=== PATIENT | female | born 1940 | race Caucasian/White ===

== ENCOUNTER 2020-09-07 13:11 | Inpatient (IN) | payer MEDICARE, MEDICAID, SELFPAY ==
[2020-09-07] VITALS (16 sets, daily range): BP systolic 107–166; BP diastolic 63–100; PULSE 57–124; RESP 14–29; TEMP 36.2–36.9; O2SAT 94–99; BMI 45.6
--- NOTE | 2020-09-07 13:39 | ECG_ITS ---
Test Reason : SOB Blood Pressure : / mmHG Vent. Rate : 126 BPM Atrial Rate : 136 BPM P-R Int : 000 ms QRS Dur : 150 ms QT Int : 354 ms P-R-T Axes : 000 -64 148 degrees QTc Int : 512 ms Wide QRS tachycardia with Premature ventricular complexes or Fusion complexes Left axis deviation Left bundle branch block Abnormal ECG When compared with ECG of 19-AUG-2019 19:07, Heart rate has increased Referred By: Jose Eduardo Bhagat Electronically Signed By:JESSE VIVAS MD
--- NOTE | 2020-09-07 13:40 | XR_ITS ---
EXAMINATION: XR CHEST CLINICAL INFORMATION: Chest pain COMPARISON: 04/26/2019 TECHNIQUE: Frontal view of the chest was obtained. FINDINGS: Lungs are well expanded and clear. No acute findings. No evidence of pulmonary consolidation, pleural effusion or pneumothorax. Cardiac silhouette is in the normal size range for an AP portable chest radiograph. 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 Multilevel osteophyte formation of the spine. IMPRESSION: No acute cardiopulmonary abnormality compared to the prior CXR from 04/26/2019.
--- NOTE | 2020-09-07 13:41 | ED.GENADULT ---
HPI - General Adult General Chief complaint: Dyspnea Stated complaint: DIFFICULTY BREATHING Time Seen by Provider: 09/07/20 13:32 History of Present Illness HPI narrative: this is a very pleasant 80 years old of female presented to the emergency department with the chief complaint no dyspnea, weakness, malaise. Denies any chest pain, fever, cough Onset (ago): day(s) (1) Radiation: non-radiation Severity: moderate Relieving factors: none Exacerbating factors: movement Related Data Allergies Allergy/AdvReac Type Severity Reaction Status Date / Time lisinopril [From Zestril] Allergy Intermediate RASH, Unverified 08/14/20 16:58 FACIAL SWELLING aspirin [Aspirin] Allergy Mild UPSET Unverified 08/14/20 16:58 STOMACH aspirin Allergy Unknown GI upset Uncoded 04/07/20 00:00 Review of Systems Review of Systems: Yes all other systems are reviewed and are negative Cardiovascular: Cardiovascular: Reports no additional cardiovascular complaints Gastrointestinal: Gastrointestinal: Reports no additional gastrointestinal complaints, Denies abdominal pain and Denies melena Psychiatric: Psychiatric: Reports no additional psychiatric complaints PMFSH Past Medical History Attestation statement: The following information was validated with the patient. Medical History Anal cancer Arthritis Atrial fibrillation Hypertension Social History Social History Alcohol intake: never Smoking Status: Never smoker Use of substances other than those prescribed or required for medical reasons: No Advance Directives: No Advance Directives Information Provided: No Physical Exam Vital Signs: Vital Signs: Vital Signs Temp Pulse Resp BP Pulse Ox 09/07/20 16:03 107 H 25 H 136/80 99 09/07/20 15:55 124 H 136/80 09/07/20 15:45 124 H 29 H 136/80 94 09/07/20 15:16 26 H 97 09/07/20 14:20 116 H 138/91 H 09/07/20 14:09 98.5 F 106 H 17 138/91 H 95 09/07/20 13:41 98.3 F 117 H 15 143/89 H 95 Body Mass Index 45.6 Const: General: cooperative Orientation/consciousness: oriented to person, oriented to place, oriented to time and patient oriented x3 HENMT: Head: Yes normal to inspection and Yes No palpable skull fracture present General nose exam: Normal external nose present Face and sinus: Yes normal facial exam Mouth: Normal oral and palatal mucosa present Eyes: General: appearance normal, both eyes and all related structures Visual Villalba: normal visual villalba by confrontation Alignment and Position: alignment normal Neck: Neck: Yes normal visual inspection, Yes full ROM and Yes no lymphadenopathy Chest: Chest palpation & inspection: normal inspection of the chest and normal palpation of entire chest wall Resp: Effort & Inspection: normal respiratory effort Cardio: Jugular venous distension: no JVD Palpation: normal PMI Rate: regular rate Rhythm: regular rhythm Skin: General skin exam: no rashes or lesions noted Neuro: General: oriented to person, oriented to place, oriented to time and patient oriented x3 Medical Decision Making Lab Data Lab results reviewed: Yes I reviewed the patient's lab results. Result diagrams: 09/07/20 13:56 09/07/20 13:56 Labs: Lab Results 09/07/20 09/07/20 09/07/20 Range/Units 13:56 13:56 13:56 WBC 6.2 (4.8-10.8) X10*3/uL RBC 4.67 (4.20-5.50) X10*6/uL Hgb 13.8 (12.0-16.0) g/dl Hct 44.5 (37-47) % MCV 95.3 (80-98) fL MCH 29.6 (27.0-33.0) pg MCHC 31.0 (31.0-35.0) g/dl RDW 13.9 (11.0-16.0) % Plt Count 180 (160-400) X10*3/uL MPV 11.5 (9.4-12.3) fL Immature Gran % (Auto) 0.3 (0.0-0.4) % Neut % (Auto) 70.0 (45-73) % Lymph % (Auto) 18.7 L (20-40) % [place] % (Auto) 9.3 (2-11) % Eos % (Auto) 1.0 (0-4) % Baso % (Auto) 0.7 (0-2) % Lymph # (Auto) 1.2 (1.2-4.9) X10*3/uL [place] # (Auto) 0.6 (0.1-1.2) X10*3/uL Eos # (Auto) 0.1 (0.0-0.4) X10*3/uL Baso # (Auto) 0.0 (0.0-0.2) X10*3/uL Abs Immat Gran (auto) 0.02 (0.00-0.03) X10*3/uL Absolute Neuts (auto) 4.3 (2.0-8.3) X10*3/uL Absolute Nucleated RBC 0.000 (0.0-0.012) X10*3/uL Nucleated RBC % (auto) 0.0 (0.0-0.2) /100WBC PT 16.1 H (10.8-13.0) SEC INR 1.4 H (0.9-1.1) APTT 38.0 (24.1-38.0) SEC Sodium 142 (135-145) mmol/L Potassium 4.3 (3.3-5.1) mmol/l Chloride 107 (96-108) mmol/L Carbon Dioxide 26 (22-29) mmol/L Anion Gap 13 (12-20) BUN 23 H (9-16) mg/dL Creatinine 0.80 (0.5-1.4) mg/dL Estim Creat Clear Calc 69.3 Estimated GFR > 60 Random Glucose 109 (60-115) mg/dL Calcium 8.5 (8.4-10.2) mg/dL Total Bilirubin 0.8 (0.0-1.0) mg/dL AST 61 H (5-31) U/L ALT 61 H (0-31) U/L Alkaline Phosphatase 70 (39-117) U/L Troponin I High Sens (<3.5-17.0) ng/L Total Protein 6.4 L (6.5-8.0) g/dL Albumin 3.8 (3.5-5.0) g/dL 09/07/20 Range/Units 13:56 WBC (4.8-10.8) X10*3/uL RBC (4.20-5.50) X10*6/uL Hgb (12.0-16.0) g/dl Hct (37-47) % MCV (80-98) fL MCH (27.0-33.0) pg MCHC (31.0-35.0) g/dl RDW (11.0-16.0) % Plt Count (160-400) X10*3/uL MPV (9.4-12.3) fL Immature Gran % (Auto) (0.0-0.4) % Neut % (Auto) (45-73) % Lymph % (Auto) (20-40) % [place] % (Auto) (2-11) % Eos % (Auto) (0-4) % Baso % (Auto) (0-2) % Lymph # (Auto) (1.2-4.9) X10*3/uL [place] # (Auto) (0.1-1.2) X10*3/uL Eos # (Auto) (0.0-0.4) X10*3/uL Baso # (Auto) (0.0-0.2) X10*3/uL Abs Immat Gran (auto) (0.00-0.03) X10*3/uL Absolute Neuts (auto) (2.0-8.3) X10*3/uL Absolute Nucleated RBC (0.0-0.012) X10*3/uL Nucleated RBC % (auto) (0.0-0.2) /100WBC PT (10.8-13.0) SEC INR (0.9-1.1) APTT (24.1-38.0) SEC Sodium (135-145) mmol/L Potassium (3.3-5.1) mmol/l Chloride (96-108) mmol/L Carbon Dioxide (22-29) mmol/L Anion Gap (12-20) BUN (9-16) mg/dL Creatinine (0.5-1.4) mg/dL Estim Creat Clear Calc Estimated GFR Random Glucose (60-115) mg/dL Calcium (8.4-10.2) mg/dL Total Bilirubin (0.0-1.0) mg/dL AST (5-31) U/L ALT (0-31) U/L Alkaline Phosphatase (39-117) U/L Troponin I High Sens 19.3 H (<3.5-17.0) ng/L Total Protein (6.5-8.0) g/dL Albumin (3.5-5.0) g/dL Imaging Data Chest x-ray: Attestation: I personally reviewed and interpreted this imaging study as follows: Radiologist's impression: NAD ECG Data Attestation: I personally reviewed and interpreted this ECG as follows: Prior ECG tracings: available for review Pacemaker model: atrial fibrillation with a rate of 126 old left bundle-branch block Critical Care Time Critical Care Time Total Critical Care Time: 30 Attestation: iv cardizem and titration Discharge Plan Discharge Clinical Impression: Atrial fibrillation with controlled ventricular rate Patient Disposition: Admitted As Inpatient
[2020-09-07 14:08] LABS: MANUAL DIFF FLAG NO
[2020-09-07 14:11] LABS: Basophils Percent Auto 0.7 % (0-2); Eosinophils Absolute Auto 0.1 X10*3/uL (0.0-0.4); Hematocrit 44.5 % (37-47); Hemoglobin 13.8 g/dl (12.0-16.0); Imm Gran Abs Auto 0.02 X10*3/uL (0.00-0.03); Imm Gran Pct Auto 0.3 % (0.0-0.4); Lymphocytes Absolute Auto 1.2 X10*3/uL (1.2-4.9); Lymphocytes Percent Auto 18.7 % (20-40); Mean Corpuscular Hemoglobin 29.6 pg (27.0-33.0); Mean Corpuscular Volume 95.3 fL (80-98); Mean Platelet Volume 11.5 fL (9.4-12.3); Monocytes Absolute Auto 0.6 X10*3/uL (0.1-1.2); Monocytes Percent Auto 9.3 % (2-11); Neutrophils Absolute Auto 4.3 X10*3/uL (2.0-8.3); Platelet Count 180 X10*3/uL (160-400); Red Blood Count 4.67 X10*6/uL (4.20-5.50); Red Cell Distribution Width 13.9 % (11.0-16.0); White Blood Count 6.2 X10*3/uL (4.8-10.8)
[2020-09-07] MEDS: dilTIAZem HCL 50 MG/10 ML VIAL 15 MG IVPUSH (14:20)
[2020-09-07 14:29] LABS: INTERNATIONAL NORM RATIO 1.4 (0.9-1.1); Prothrombin Time 16.1 SEC (10.8-13.0)
[2020-09-07 14:40] LABS: Alanine Aminotransferase 61 U/L (0-31); Albumin Level 3.8 g/dL (3.5-5.0); Alkaline Phosphatase 70 U/L (39-117); Anion Gap 13 (12-20); Aspartate Amino Transferase 61 U/L (5-31); Bilirubin Total 0.8 mg/dL (0.0-1.0); Blood Urea Nitrogen 23 mg/dL (9-16); Calcium 8.5 mg/dL (8.4-10.2); Carbon Dioxide 26 mmol/L (22-29); Chloride 107 mmol/L (96-108); Creatinine Clr Calc Pharmacy 69.3; Estimated Glomerular Filt Rate > 60; Glucose Random 109 mg/dL (60-115); Potassium 4.3 mmol/l (3.3-5.1); Sodium 142 mmol/L (135-145); Total Protein 6.4 g/dL (6.5-8.0)
[2020-09-07 15:17] LABS: Troponin-I High Sensitivity 19.3 ng/L (<3.5-17.0)
[2020-09-07] MEDS: dilTIAZem HCL 125 MG in 0.9 % Sodium Chloride 100 ML IVCONT (15:55)
--- NOTE | 2020-09-07 16:03 | PC.NURSE ---
CARDIZEM DRIP STARTED, PT ALSO ASSISTED TO BEDPAN. PLACED ON 2L O2 VIA NC.
--- NOTE | 2020-09-07 16:27 | PM.IMHP ---
History of Present Illness Date of Service: 09/07/20 <Payton Martinez NP - Last Filed: 09/07/20 16:43> Chief Complaint: Tiredness <Payton Martinez NP - Last Filed: 09/07/20 16:43> 80-year-old woman presented to the ER with complaints of 2-3 days of feeling more tired and short breath. She has a history of atrial fibrillation. She denied chest pain, nausea, vomiting, diarrhea. 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 Her heart rate was noted to be as high as 124. She was started on a Cardizem drip. She was noted to have an elevated blood pressure of 150 1.92. She reported that she has had elevated blood pressures and has been under more stress recently as she has had some family complications with her granddaughters that do not visit her any longer. her initial troponin was noted to be elevated at 19.3 point she has no complaints of chest pain. Patient will be admitted for further management treatment of atrial fibrillation with rapid ventricular response. <Payton Martinez NP - Last Filed: 09/07/20 16:43> Review of Systems Review of Systems: Denies any recent fever chills or decrease in appetite respiratory See HPI cardiovascular see HPI gastrointestinal denies any dysphagia abdominal pain nausea vomiting or diarrhea genitourinary denies any dysuria frequency or hematuria musculoskeletal denies any joint pain or swelling neuropsych denies any weakness or seizures all other systems reviewed are negative <Payton Martinez NP - Last Filed: 09/07/20 16:43> [facility] Medical History: Medical History (Updated 09/08/20 @ 15:03 by Franklin Beltran MD) Anal cancer Arthritis Atrial fibrillation Atrial fibrillation with controlled ventricular rate Chronic diastolic heart failure Esophagitis Essential hypertension Fibromyalgia Left bundle branch block (LBBB) Obstructive sleep apnea <PRAVEENA Irizarry Last Filed: 09/07/20 16:43> Pertinent family history: no cardiac disease <Payton Martinez NP - Last Filed: 09/07/20 16:43> Surgical History: Surgical History H/O foot surgery History of bladder surgery History of total knee arthroplasty Status post ORIF of fracture of ankle <Payton Martinez NP - Last Filed: 09/07/20 16:43> Social History: Social History Household Members: Family Housing: Apartment Alcohol intake: never Smoking Status: Never smoker service: No Current occupational status: retired <Payton Martinez NP - Last Filed: 09/07/20 16:43> Meds Allergies/Adverse reactions: Allergies Allergy/AdvReac Type Severity Reaction Status Date / Time lisinopril [From Zestril] Allergy Intermediate RASH, Verified 09/07/20 17:00 FACIAL SWELLING aspirin [Aspirin] Allergy Mild UPSET Verified 09/07/20 17:00 STOMACH aspirin Allergy Unknown GI upset Uncoded 04/07/20 00:00 <Payton Martinez NP - Last Filed: 09/07/20 16:43> Home medications: Home Medications Medication Instructions Recorded Confirmed Type Eliquis 5 mg PO BID 09/07/20 09/07/20 History docusate sodium [Colace] 100 mg PO BID 09/07/20 09/07/20 History multivitamin 1 tab PO DAILY 09/07/20 09/07/20 History nitrofurantoin 100 mg PO Q12H 09/07/20 09/07/20 History omeprazole 20 mg PO BID 09/07/20 09/07/20 History torsemide 5 mg PO DAILY 09/07/20 09/07/20 History tramadol 50 mg PO BID 09/07/20 09/07/20 History valsartan 320 mg PO DAILY 09/07/20 09/07/20 History verapamil 60 mg PO BID 09/07/20 09/07/20 History <Payton Martinez NP - Last Filed: 09/07/20 16:43> Physical Exam Vital Signs and Narrative: Vital Signs: Last Vital Signs Temp 98.5 F 09/07/20 14:09 Pulse 120 H 09/07/20 16:25 Resp 15 09/07/20 16:25 BP 151/92 H 09/07/20 16:25 Pulse Ox 99 09/07/20 16:25 Body Mass Index 45.6 <Payton Martinez NP - Last Filed: 09/07/20 16:43> Appearing in no acute distress head is normocephalic atraumatic eyes pupils are PERRLA sclera is anicteric mouth throat mucous membranes are intact and moist neck is supple no lymphadenopathy, no JVD noted lung sounds are diminished heart regular irregular positive bowel sounds, abdomen is soft, nontender neuro patient is alert x3, no focal deficits <Payton Martinez NP - Last Filed: 09/07/20 16:43> Results Labs Labs: Laboratory Tests 09/07/20 09/07/20 09/07/20 13:56 13:56 13:56 WBC 6.2 RBC 4.67 Hgb 13.8 Hct 44.5 MCV 95.3 MCH 29.6 MCHC 31.0 RDW 13.9 Plt Count 180 MPV 11.5 Immature Gran % (Auto) 0.3 Neut % (Auto) 70.0 Lymph % (Auto) 18.7 L [place] % (Auto) 9.3 Eos % (Auto) 1.0 Baso % (Auto) 0.7 Lymph # (Auto) 1.2 [place] # (Auto) 0.6 Eos # (Auto) 0.1 Baso # (Auto) 0.0 Abs Immat Gran (auto) 0.02 Absolute Neuts (auto) 4.3 Absolute Nucleated RBC 0.000 Nucleated RBC % (auto) 0.0 PT 16.1 H INR 1.4 H APTT 38.0 Sodium 142 Potassium 4.3 Chloride 107 Carbon Dioxide 26 Anion Gap 13 BUN 23 H Creatinine 0.80 Estim Creat Clear Calc 69.3 Estimated GFR > 60 Random Glucose 109 Calcium 8.5 Total Bilirubin 0.8 AST 61 H ALT 61 H Alkaline Phosphatase 70 Troponin I High Sens Total Protein 6.4 L Albumin 3.8 09/07/20 13:56 WBC RBC Hgb Hct MCV MCH MCHC RDW Plt Count MPV Immature Gran % (Auto) Neut % (Auto) Lymph % (Auto) [place] % (Auto) Eos % (Auto) Baso % (Auto) Lymph # (Auto) [place] # (Auto) Eos # (Auto) Baso # (Auto) Abs Immat Gran (auto) Absolute Neuts (auto) Absolute Nucleated RBC Nucleated RBC % (auto) PT INR APTT Sodium Potassium Chloride Carbon Dioxide Anion Gap BUN Creatinine Estim Creat Clear Calc Estimated GFR Random Glucose Calcium Total Bilirubin AST ALT Alkaline Phosphatase Troponin I High Sens 19.3 H Total Protein Albumin <Payton Martinez NP - Last Filed: 09/07/20 16:43> Assessment and Plan (1) Atrial fibrillation with rapid ventricular response: Status: Inactive <Payton Martinez NP - Last Filed: 09/07/20 16:43> (2) Elevated troponin: Status: Acute <Payton Martinez NP - Last Filed: 09/07/20 16:43> (3) Chronic diastolic heart failure: Status: Inactive <Payton Martinez NP - Last Filed: 09/07/20 16:43> (4) Hypertension: Status: Deleted <Payton Martinez NP - Last Filed: 09/07/20 16:43> 80-year-old woman admitted with atrial fibrillation with rapid ventricular response with history of atrial fibrillation. Atrial fibrillation with rapid ventricular response. Continue IV Cardizem, monitor on telemetry, cardiology to follow, continue anticoagulation. Elevated troponin. No complaints of chest pain. Chronic left bundle branch block. Will trend troponin. Hypertension. Continue home medications. DVT prophylaxis with Eliquis. Case discussed with Dr. Beltran Full code <Payton Martinez NP - Last Filed: 09/07/20 16:43>
--- NOTE | 2020-09-07 16:47 | PC.NURSE ---
JC UPDATED REQUESTED [phone]. MED REC BEING COMPLETED
--- NOTE | 2020-09-07 17:22 | PC.NURSE ---
pt tolerated titration well. med rec complete,. awaiting room #
--- NOTE | 2020-09-07 17:36 | PC.NURSE ---
CALLED UP TO C TO GIVE REPORT
--- NOTE | 2020-09-07 17:39 | PM.EVENT ---
Event Note Event Note: Admission note Date of service 09/07/2020 the patient was seen and evaluated with Payton Martinez NP. I agree with her note, assessment and plan with the following. In summary, an 80 years old lady with past medical history of atrial fibrillation, diastolic CHF, CARON,anal cancer among others who presented to the hospital with reported increased lethargy and shortness of breath for the last 2-3 days. She denies fever, chills, chest pain. She denies feeling any palpitation. In the emergency she was found to heart rate in 120s AFib with RVR. Started on Cardizem drip and admitted for further evaluation and treatment. Atrial fibrillation with RVR Started on Cardizem drip, to continue Continue oral anticoagulation Monitor on telemetry To get cardiology evaluation the morning Rest of evaluations by EXPERIMENTAL ROCKET SLED MECHANIC note.
[2020-09-07 17:44] LABS: Magnesium 1.7 mg/dL (1.6-2.6)
[2020-09-07 18:05] LABS: Thyroid Stimulating Hormone 1.58 mIU/mL (0.32-4.0)
[2020-09-07 19:18] LABS: B Type Natriuretic Peptide 227 pg/mL (<100); Troponin-I High Sensitivity 24.1 ng/L (<3.5-17.0)
[2020-09-07] MEDS: Docusate Sodium 100 MG CAPSULE PO (19:55)
[2020-09-07] MEDS: Apixaban 5 MG TABLET PO (19:55)
[2020-09-07] MEDS: traMADoL HCL 50 MG TABLET PO (19:55)
[2020-09-07] MEDS: VerapamiL HCL 40 MG TABLET 60 MG PO (20:31)
[2020-09-08] VITALS (16 sets, daily range): BP systolic 107–145; BP diastolic 59–110; PULSE 72–98; RESP 16–22; TEMP 35.5–36.9; O2SAT 96–100; BMI 45.6
--- NOTE | 2020-09-08 00:03 | PC.NURSE ---
hr 57 aflutter,cardizem drip stopped,Dr Aguilar notified
[2020-09-08] MEDS: traZODone HCL 25 MG HALFTAB PO (00:08)
--- NOTE | 2020-09-08 05:10 | PC.NURSE ---
CARE ASSUMED 23:15...REMAINS OFF CARDIZEM DRIP...ATRIAL FLUTTER HR 70'S SINCE RECEIPT HS VERAPAMIL...VSS...NO DISTRESS...C/O INABILITY TO SLEEP AT HS..HOSPITALIST UPDATED...PRN TRAZADONE GIVEN WITH GOOD EFFECT...RESTFUL OVERNIGHT
[2020-09-08] MEDS: Omeprazole 20 MG CAPSULE.DR PO ×2 (05:32→16:32)
[2020-09-08] MEDS: Apixaban 5 MG TABLET PO ×2 (08:46→21:33)
[2020-09-08] MEDS: traMADoL HCL 50 MG TABLET PO ×2 (08:46→21:32)
[2020-09-08] MEDS: Docusate Sodium 100 MG CAPSULE PO ×2 (08:47→21:32)
[2020-09-08] MEDS: VerapamiL HCL 40 MG TABLET 60 MG PO ×2 (08:47→21:33)
[2020-09-08] MEDS: Multivitamin TABLET 1 TAB PO (08:47)
[2020-09-08] MEDS: Furosemide 20 MG/2 ML VIAL IVPUSH (11:28)
--- NOTE | 2020-09-08 11:44 | MHC.CM.PN ---
POWER PLANT TECHNICIAN completed with pt and her friend who was at bedside. Pt declined translator/interpreter services. Pt reports she lives at home with her two adult sons and her S/O whom she has been with for 35 years. Pt reports she has a SAMPLE CHECKER for a total of 50 hours every two weeks and no other home care services. Pt reports her sons typically drive her to appointments and assist her with errands. Pt confirms the PCP and HCP on file are accurate. IMM delivered verbally and pt indicates understanding Current DC plan is home with resumption of SAMPLE CHECKER services pt will self arrange transportation
--- NOTE | 2020-09-08 11:55 | PM.CNCAR ---
History of Present Illness History of Present Illness Date of Consult: September 08, 2020 Chief complaint: weakness, rapid afib Narrative: This is a cardiology consultation regarding atrial fibrillation with rapid rate. Patient sees Dr. Escobar as an outpatient. She has a history of chronic atrial fibrillation. Not very clear if she has paroxysmal persistent but EKGs from last year have shown sinus rhythm. Current admission is for complaints of feeling tired and short of breath. She was found to have atrial fibrillation rapid rate. She has been put on a Cardizem drip. At home it seems that she takes verapamil and Eliquis. Otherwise no clear anginal-type chest pains. She does not feel any palpitations at this time. No documented history of any coronary disease, myocardial infarction or PCI in the past. Review of Systems Review of Systems: Cardiac-positive for shortness of breath and fatigue; No palpitations, angina or syncopal episodes. Remainder of the 10 system review is negative. [facility] Past Medical History Medical History Anal cancer Arthritis Atrial fibrillation Atrial fibrillation with controlled ventricular rate Chronic diastolic heart failure Esophagitis Fibromyalgia Hypertension Left bundle branch block (LBBB) Obstructive sleep apnea Family History Pertinent family history: Negative for any myocardial infarction. Family history: reviewed and not pertinent Surgical History Surgical History H/O foot surgery History of bladder surgery History of total knee arthroplasty Status post ORIF of fracture of ankle Social History Social History Household Members: Family Housing: Apartment Alcohol intake: never Smoking Status: Never smoker Use of substances other than those prescribed or required for medical reasons: No Currently Displaying Signs/Symptoms of Drug Intoxication Withdrawal: No Have you been hit, kicked, punched, or otherwise hurt by someone within the past year? If so, by whom?: No Do you feel safe in your current relationship?: No Is there a partner from a previous relationship who is making you feel unsafe now?: No Are you made to feel afraid or neglected: No Advance Directives: No Advance Directives Information Provided: No Do you have thoughts of harming others: None service: No Current occupational status: retired Meds Allergies Allergy/AdvReac Type Severity Reaction Status Date / Time lisinopril [From Zestril] Allergy Intermediate RASH, Verified 09/07/20 17:00 FACIAL SWELLING aspirin [Aspirin] Allergy Mild UPSET Verified 09/07/20 17:00 STOMACH aspirin Allergy Unknown GI upset Uncoded 04/07/20 00:00 Home Medications Medication Instructions Recorded Confirmed Type apixaban [Eliquis] 5 mg PO BID 09/07/20 09/07/20 History docusate sodium [Colace] 100 mg PO BID 09/07/20 09/07/20 History multivitamin 1 tab PO DAILY 09/07/20 09/07/20 History nitrofurantoin 100 mg PO Q12H 09/07/20 09/07/20 History omeprazole 20 mg PO BID 09/07/20 09/07/20 History torsemide 5 mg PO DAILY 09/07/20 09/07/20 History tramadol 50 mg PO BID 09/07/20 09/07/20 History valsartan 320 mg PO DAILY 09/07/20 09/07/20 History verapamil 60 mg PO BID 09/07/20 09/07/20 History Physical Exam Vital Signs: Vital Signs: Vital Signs Temp Pulse Resp BP Pulse Ox 09/08/20 11:40 97.8 F 84 16 130/81 100 09/08/20 10:00 96 F L 86 20 124/69 99 09/08/20 06:57 98 F 96 22 H 132/79 100 09/08/20 06:55 97 F 84 22 H 132/79 100 09/08/20 05:25 97.9 F 82 18 117/67 100 09/08/20 03:15 98.0 F 81 18 126/74 100 09/08/20 03:11 98.0 F 81 18 126/74 100 09/08/20 02:00 72 18 09/08/20 00:00 74 20 09/07/20 23:45 98.0 F 80 20 132/75 99 09/07/20 23:38 98.0 F 80 20 132/75 99 09/07/20 22:54 57 20 107/63 99 09/07/20 20:31 84 09/07/20 19:22 97.1 F 88 20 150/90 H 99 09/07/20 18:16 98 F 124 H 26 H 166/100 H 99 10/11/20 17:20 90 14 143/88 H 99 09/07/20 16:59 104 H 20 157/82 H 99 09/07/20 16:25 120 H 15 151/92 H 99 09/07/20 16:03 107 H 25 H 136/80 99 09/07/20 15:55 124 H 136/80 09/07/20 15:45 124 H 29 H 136/80 94 09/07/20 15:16 26 H 97 09/07/20 14:20 116 H 138/91 H 09/07/20 14:09 98.5 F 106 H 17 138/91 H 95 09/07/20 13:41 98.3 F 117 H 15 143/89 H 95 Body Mass Index 45.6 Comfortable, no distress No pallor, icterus or cyanosis HEENT -unremarkable JVD- normal Cardiac- normal heart sounds, no murmurs, gallops or rubs, normal PMI Respiratory-normal breath sounds bilaterally, no crackles, no wheeze Abdomen- soft, nontender Neuro- alert and oriented Lower extremities- no significant edema, warm well perfused Results Labs and Meds Result diagrams: 09/07/20 13:56 09/07/20 13:56 Lab results: Laboratory Results - last 24 hr 09/07/20 09/07/20 09/07/20 13:56 13:56 13:56 WBC 6.2 RBC 4.67 Hgb 13.8 Hct 44.5 MCV 95.3 MCH 29.6 MCHC 31.0 RDW 13.9 Plt Count 180 MPV 11.5 Immature Gran % (Auto) 0.3 Neut % (Auto) 70.0 Lymph % (Auto) 18.7 L [place] % (Auto) 9.3 Eos % (Auto) 1.0 Baso % (Auto) 0.7 Lymph # (Auto) 1.2 [place] # (Auto) 0.6 Eos # (Auto) 0.1 Baso # (Auto) 0.0 Abs Immat Gran (auto) 0.02 Absolute Neuts (auto) 4.3 Absolute Nucleated RBC 0.000 Nucleated RBC % (auto) 0.0 PT 16.1 H INR 1.4 H APTT 38.0 Sodium 142 Potassium 4.3 Chloride 107 Carbon Dioxide 26 Anion Gap 13 BUN 23 H Creatinine 0.80 Estim Creat Clear Calc 69.3 Estimated GFR > 60 Random Glucose 109 Calcium 8.5 Magnesium 1.7 Total Bilirubin 0.8 AST 61 H ALT 61 H Alkaline Phosphatase 70 Troponin I High Sens B-Natriuretic Peptide Total Protein 6.4 L Albumin 3.8 TSH 1.58 09/07/20 09/07/20 13:56 18:32 WBC RBC Hgb Hct MCV MCH MCHC RDW Plt Count MPV Immature Gran % (Auto) Neut % (Auto) Lymph % (Auto) [place] % (Auto) Eos % (Auto) Baso % (Auto) Lymph # (Auto) [place] # (Auto) Eos # (Auto) Baso # (Auto) Abs Immat Gran (auto) Absolute Neuts (auto) Absolute Nucleated RBC Nucleated RBC % (auto) PT INR APTT Sodium Potassium Chloride Carbon Dioxide Anion Gap BUN Creatinine Estim Creat Clear Calc Estimated GFR Random Glucose Calcium Magnesium Total Bilirubin AST ALT Alkaline Phosphatase Troponin I High Sens 19.3 H 24.1 H B-Natriuretic Peptide 227 H Total Protein Albumin TSH Cardiology Testing Echo: report reviewed EKG Interpretation EKG Comments: Most recent EKG shows atrial flutter at a rate of 81/Min. Assessment and Plan (1) Atrial fibrillation with controlled ventricular rate: Status: Acute (2) Elevated troponin: Status: Acute (3) Left bundle branch block (LBBB): Status: Acute (4) Essential hypertension: Status: Acute We can start her on digoxin loading. Once the rate improves, we can start weaning on the Cardizem drip. At home she is on verapamil. Continue anticoagulation. Very mild troponin elevation suspected to be from demand.
[2020-09-08] MEDS: Digoxin 0.25 MG TABLET PO ×2 (13:55→16:32)
--- NOTE | 2020-09-08 14:59 | HO.PM.IMPN ---
Subjective Subjective Date of Service: 09/08/20 Interval History: the patient was seen and evaluated this morning Laying in bed, feels comfortable Still reporting mild shortness of breath Denies any fever, chills or shortness of breath No reported other overnight events. Review of Systems Review of Systems: Yes all other systems are reviewed and are negative Physical Exam Vital Signs: Vital Signs: Vital Signs Temp Pulse Resp BP Pulse Ox 09/08/20 14:00 97 09/08/20 13:55 97 09/08/20 11:40 97.8 F 84 16 130/81 100 09/08/20 10:00 96 F L 86 20 124/69 99 09/08/20 06:57 98 F 96 22 H 132/79 100 09/08/20 06:55 97 F 84 22 H 132/79 100 09/08/20 05:25 97.9 F 82 18 117/67 100 09/08/20 03:15 98.0 F 81 18 126/74 100 09/08/20 03:11 98.0 F 81 18 126/74 100 09/08/20 02:00 72 18 09/08/20 00:00 74 20 09/07/20 23:45 98.0 F 80 20 132/75 99 09/07/20 23:38 98.0 F 80 20 132/75 99 09/07/20 22:54 57 20 107/63 99 09/07/20 20:31 84 09/07/20 19:22 97.1 F 88 20 150/90 H 99 09/07/20 18:16 98 F 124 H 26 H 166/100 H 99 09/07/20 17:20 90 14 143/88 H 99 09/07/20 16:59 104 H 20 157/82 H 99 09/07/20 16:25 120 H 15 151/92 H 99 09/07/20 16:03 107 H 25 H 136/80 99 09/07/20 15:55 124 H 136/80 09/07/20 15:45 124 H 29 H 136/80 94 09/07/20 15:16 26 H 97 Body Mass Index 45.6 Constitutional : Alert, oriented, not in distress Neck : Normal inspection, Supple Cardiovascular : irregular heart rhythm, S1 S2, +1 lower extremity edema Respiratory : Good bilateral air entry, fine basal crackles, wheezes or rhonchi Gastrointestinal: soft, lax, Normal bowel sounds, Non tender Skin : Warm/Dry, No rash Neurological : Alert & oriented x3, No focal deficit Objective Data Current Medications Generic Name Dose Route Start Last Admin Trade Name Ariella PRN Reason Stop Dose Admin Apixaban 5 mg 09/07/20 21:00 09/08/20 08:46 Apixaban 5 Mg Tablet PO 5 mg BID TATA Administration Digoxin 0.25 mg 09/08/20 11:00 09/08/20 13:55 Digoxin 0.25 Mg Tablet PO 09/09/20 05:01 0.25 mg Q6H TATA Administration Docusate Sodium 100 mg 09/07/20 21:00 09/08/20 08:47 Docusate Sodium 100 Mg Capsule PO 100 mg BID TATA Administration Diltiazem HCl 125 mg/ Sodium 125 mls @ 0 mls/hr 09/07/20 15:25 09/07/20 22:54 Chloride IVCONT 0 mg/hr .Q0M [facility] 0 mls/hr Titration Protocol Per Protocol Multivitamins/Vitamin C 1 tab 09/08/20 09:00 09/08/20 08:47 Multivitamin Tablet PO 1 tab DAILY [facility] Administration Non-Formulary Medication 5 mg 09/08/20 09:00 Torsemide PO DAILY TATA Omeprazole 20 mg 09/08/20 06:30 09/08/20 05:32 Omeprazole 20 Mg Capsule.Dr PO 20 mg BID@0630,1630 [facility] Administration Pharmacy Consult 1 each 09/07/20 16:03 Consult Rx Perform Med Rec MISCELLANE ONCE PRN Consult order Tramadol HCl 50 mg 09/07/20 21:00 09/08/20 08:46 Tramadol Hcl 50 Mg Tablet PO 50 mg BID TATA Administration Trazodone HCl 25 mg 09/07/20 23:45 09/08/20 00:08 Trazodone Hcl 25 Mg Halftab PO 25 mg BEDTIME PRN Administration Insomnia Verapamil HCl 60 mg 09/07/20 21:00 09/08/20 08:47 Verapamil Hcl 40 Mg Tablet PO 60 mg BID TATA Administration Protocol Labs CBC & Chem 7: 09/07/20 13:56 09/07/20 13:56 Assessment and Plan (1) Atrial fibrillation with controlled ventricular rate: Status: Acute (2) Acute on chronic diastolic (congestive) heart failure: Status: Acute (3) Essential hypertension: Status: Acute (4) Left bundle branch block (LBBB): Status: Acute (5) Atrial fibrillation with rapid ventricular response: Status: Inactive (6) Elevated troponin: Status: Acute (7) Chronic diastolic heart failure: Status: Inactive (8) Hypertension: Status: Deleted Assessment and Plan: an 80 years old lady with past medical history of atrial fibrillation, diastolic CHF, CARON,anal cancer among others who presented to the hospital with reported increased lethargy and shortness of breath for the last 2-3 days. Atrial fibrillation with RVR Cardizem drip, to hold when controlled Load with Digoxin Continue Verapamil PO Continue oral anticoagulation Monitor on telemetry cardiology input appreciated diastolic CHF, acute on chronic Elevated BNP To give IV lasix I\O hold on repeat ECHO now Elevated troponin. No complaints of chest pain. trended flat. Hypertension. home medications. DVT prophylaxis Eliquis.
[2020-09-09] VITALS (7 sets, daily range): BP systolic 119–137; BP diastolic 66–68; PULSE 67–95; RESP 20; TEMP 36–36.8; O2SAT 93–100
[2020-09-09] MEDS: Digoxin 0.25 MG TABLET PO ×2 (00:23→05:33)
[2020-09-09] MEDS: Omeprazole 20 MG CAPSULE.DR PO (05:33)
[2020-09-09 05:50] LABS: MANUAL DIFF FLAG NO
[2020-09-09 05:57] LABS: Basophils Percent Auto 0.7 % (0-2); Eosinophils Absolute Auto 0.1 X10*3/uL (0.0-0.4); Eosinophils Percent Auto 2.4 % (0-4); Hematocrit 39.4 % (37-47); Hemoglobin 12.2 g/dl (12.0-16.0); Imm Gran Abs Auto 0.01 X10*3/uL (0.00-0.03); Imm Gran Pct Auto 0.2 % (0.0-0.4); Lymphocytes Percent Auto 17.3 % (20-40); Mean Corpuscular Volume 96.8 fL (80-98); Monocytes Absolute Auto 0.6 X10*3/uL (0.1-1.2); Monocytes Percent Auto 9.8 % (2-11); Neutrophils Absolute Auto 4.1 X10*3/uL (2.0-8.3); Neutrophils Percent Auto 69.6 % (45-73); Platelet Count 162 X10*3/uL (160-400); Red Blood Count 4.07 X10*6/uL (4.20-5.50); Red Cell Distribution Width 13.9 % (11.0-16.0); White Blood Count 5.9 X10*3/uL (4.8-10.8)
[2020-09-09 06:28] LABS: Anion Gap 10 (12-20); Blood Urea Nitrogen 20 mg/dL (9-16); Calcium 8.1 mg/dL (8.4-10.2); Carbon Dioxide 33 mmol/L (22-29); Chloride 103 mmol/L (96-108); Creatinine Clr Calc Pharmacy 74.9; Estimated Glomerular Filt Rate > 60; Glucose Random 93 mg/dL (60-115); Potassium 4.1 mmol/l (3.3-5.1); Sodium 142 mmol/L (135-145)
[2020-09-09] MEDS: Apixaban 5 MG TABLET PO (08:23)
[2020-09-09] MEDS: traMADoL HCL 50 MG TABLET PO (08:23)
[2020-09-09] MEDS: Multivitamin TABLET 1 TAB PO (08:23)
[2020-09-09] MEDS: Docusate Sodium 100 MG CAPSULE PO (08:23)
[2020-09-09] MEDS: VerapamiL HCL 40 MG TABLET 60 MG PO (08:23)
--- NOTE | 2020-09-09 12:33 | MHC.CM.PN ---
pt is ds being dcd home today [facility] no [facility]
--- NOTE | 2020-09-09 12:37 | PM.PNCARD ---
Subjective Subjective Interval history: Seen and examined. She feels okay. Not short of breath anymore. No other cardiac symptoms at this time. Review of Systems Review of Systems Cardiac-negative for angina shortness of breath, palpitations dizzy spells or syncopal episodes. Remainder of the 10 system review is negative. Physical Exam Vital Signs: Vital Signs Temp Pulse Resp BP Pulse Ox 09/09/20 11:20 97.6 F 79 20 129/66 97 09/09/20 09:24 93 09/09/20 08:23 81 119/68 09/09/20 07:40 98.2 F 81 20 119/68 100 09/09/20 05:33 67 09/09/20 04:00 96.8 F 86 20 137/66 100 09/09/20 00:23 95 09/08/20 23:57 97.5 F 95 20 145/110 H 96 09/08/20 21:33 88 118/73 09/08/20 19:11 98.5 F 88 18 118/73 96 09/08/20 16:32 98 09/08/20 15:08 98.2 F 98 18 107/59 L 100 09/08/20 14:00 97 09/08/20 13:55 97 Body Mass Index 45.6 Comfortable, no distress No pallor, icterus or cyanosis HEENT -unremarkable JVD- normal Cardiac- normal heart sounds, no murmurs, gallops or rubs, normal PMI Respiratory-normal breath sounds bilaterally, no crackles, no wheeze Abdomen- soft, nontender Neuro- alert and oriented Lower extremities- no significant edema, warm well perfused Progress Note: A&P Assessment and plan (1) Atrial fibrillation with controlled ventricular rate: Status: Acute (2) Elevated troponin: Status: Acute (3) Left bundle branch block (LBBB): Status: Acute (4) Essential hypertension: Status: Acute Assessment and Plan: On telemetry, she is in atrial flutter but with much better controlled rate. She is only the 70s. Continue oral digoxin 125 mcg daily. Continue home dose of verapamil. Continue with anticoagulation. Otherwise she can be discharged home on follow-up with Dr. 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 Fall Risk Details Current Medications: Current Medications Generic Name Dose Route Start Last Admin Trade Name Freq PRN Reason Stop Dose Admin Apixaban 5 mg 09/07/20 21:00 09/09/20 08:23 Apixaban 5 Mg Tablet PO 5 mg BID TATA Administration Docusate Sodium 100 mg 09/07/20 21:00 09/09/20 08:23 Docusate Sodium 100 Mg Capsule PO 100 mg BID TATA Administration Diltiazem HCl 125 mg/ Sodium 125 mls @ 0 mls/hr 09/07/20 15:25 09/07/20 22:54 Chloride IVCONT 0 mg/hr .Q0M [facility]ATA 0 mls/hr Titration Protocol Per Protocol Multivitamins/Vitamin C 1 tab 09/08/20 09:00 09/09/20 08:23 Multivitamin Tablet PO 1 tab DAILY TATA Administration Non-Formulary Medication 5 mg 09/08/20 09:00 Torsemide PO DAILY TATA Omeprazole 20 mg 09/08/20 06:30 09/09/20 05:33 Omeprazole 20 Mg Capsule. PO 20 mg BID@0630,1630 [facility] Administration Pharmacy Consult 1 each 09/07/20 16:03 Consult Rx Perform Med Rec MISCELLANE ONCE PRN Consult order Tramadol HCl 50 mg 09/07/20 21:00 09/09/20 08:23 Tramadol Hcl 50 Mg Tablet PO 50 mg BID TATA Administration Trazodone HCl 25 mg 09/07/20 23:45 09/08/20 00:08 Trazodone Hcl 25 Mg Halftab PO 25 mg BEDTIME PRN Administration Insomnia Verapamil HCl 60 mg 09/07/20 21:00 09/09/20 08:23 Verapamil Hcl 40 Mg Tablet PO 60 mg BID TATA Administration Protocol Time Spent With Patient Time: Total time spent is greater than 50% in coordination of care (as documented) at patient's floor/unit and/or counseling patient: Time with patient: 15 - 24 minutes
--- NOTE | 2020-09-09 17:15 | PM.DS ---
DS: Providers Provider Date of admission: 09/07/20 17:17 Primary care physician: Mau Ellis MD Consults: 09/07/20 18:39 Consult to Cardiology Routine Consulting Provider: [facility] [place] Cardiovascular Services Reason for consultation: afib rvr Has provider been notified: No DS: Diagnosis Discharge Diagnosis (1) Atrial fibrillation with controlled ventricular rate: Status: Acute (2) Elevated troponin: Status: Acute (3) Left bundle branch block (LBBB): Status: Acute (4) Essential hypertension: Status: Acute DS: Summary Hospital Course Hospital Course: Admission note HPI 80-year-old woman presented to the ER with complaints of 2-3 days of feeling more tired and short breath. She has a history of atrial fibrillation. She denied chest pain, nausea, vomiting, diarrhea. She lives with her signs and has a [employer] for most of her care. Her heart rate was noted to be as high as 124. She was started on a Cardizem drip. She was noted to have an elevated blood pressure of 150 1.92. She reported that she has had elevated blood pressures and has been under more stress recently as she has had some family complications with her granddaughters that do not visit her any longer. her initial troponin was noted to be elevated at 19.3 point she has no complaints of chest pain. Patient will be admitted for further management treatment of atrial fibrillation with rapid ventricular response. Hospital course The patient presented to the hospital with feeling short of breath. Found to be on atrial fibrillation with rapid ventricular response with heart rate in 120s to 140s. Started on Cardizem drip and on her home medication over abdomen meal with fair response during the 1st 24 hours. Digoxin was added by Cardiology the next morning at the Cardizem drip.. She continue to be an atrial fibrillation rhythm but her rate was controlled and she felt much better and she was able to ambulate with no reported shortness of breath. She was also noted to have elevated BNP with +1 edema in her lower extremities. She was treated with IV Lasix with good response. To be discharged home on verapamil with addition of digoxin to follow-up with PCP To check digoxin level by PCP in 2 weeks Time Spent with Patient Time attestation: Total time spent providing and/or coordinating discharge services: Physical Exam Vital Signs: Vital Signs: Vital Signs Temp Pulse Resp BP Pulse Ox 09/09/20 11:20 97.6 F 79 20 129/66 97 09/09/20 09:24 93 09/09/20 08:23 81 119/68 09/09/20 07:40 98.2 F 81 20 119/68 100 09/09/20 05:33 67 09/09/20 04:00 96.8 F 86 20 137/66 100 09/09/20 00:23 95 09/08/20 23:57 97.5 F 95 20 145/110 H 96 09/08/20 21:33 88 118/73 09/08/20 19:11 98.5 F 88 18 118/73 96 Body Mass Index 45.6 Constitutional : Alert, oriented, not in distress Neck : Normal inspection, Supple Cardiovascular : Irregular rhythm, controlled rate, S1 S2, no lower extremity edema Respiratory : Good bilateral air entry, no crackles, wheezes or rhonchi Gastrointestinal: soft, lax, Normal bowel sounds, Non tender Skin : Warm/Dry, No rash Neurological : Alert & oriented x3, No focal deficit DS: Data Data Completed and Pending Labs on day of discharge: Labs from last 24 hours 09/09/20 09/09/20 04:54 04:54 WBC 5.9 RBC 4.07 L Hgb 12.2 Hct 39.4 MCV 96.8 MCH 30.0 MCHC 31.0 RDW 13.9 Plt Count 162 MPV 12.0 Immature Gran % (Auto) 0.2 Neut % (Auto) 69.6 Lymph % (Auto) 17.3 L Craig % (Auto) 9.8 Eos % (Auto) 2.4 Baso % (Auto) 0.7 Lymph # (Auto) 1.0 L Craig # (Auto) 0.6 Eos # (Auto) 0.1 Baso # (Auto) 0.0 Abs Immat Gran (auto) 0.01 Absolute Neuts (auto) 4.1 Absolute Nucleated RBC 0.000 Nucleated RBC % (auto) 0.0 Sodium 142 Potassium 4.1 Chloride 103 Carbon Dioxide 33 H Anion Gap 10 L BUN 20 H Creatinine 0.74 Estim Creat Clear Calc 74.9 Estimated GFR > 60 Random Glucose 93 Calcium 8.1 L Discharge Plan Discharge Patient Disposition: Home, Self-Care Referrals: Mau Ellis MD [Primary Care Provider] - Discharge Medications: New digoxin 125 mcg (0.125 mg) tablet 125 mcg PO DAILY Qty: 30 RF: 0 Continued nitrofurantoin 100 mg Capsule 100 mg PO Q12H RF: 0 multivitamin Tablet 1 tab PO DAILY RF: 0 verapamil 40 mg Tablet 60 mg PO BID RF: 0 tramadol 50 mg Tablet 50 mg PO BID RF: 0 torsemide 5 mg Tablet 5 mg PO DAILY RF: 0 valsartan 320 mg Tablet 320 mg PO DAILY RF: 0 docusate sodium [Colace] 100 mg Capsule 100 mg PO BID RF: 0 omeprazole 20 mg Capsule,Delayed Release(Dr/Ec) 20 mg PO BID RF: 0 Eliquis 5 mg Tablet 5 mg PO BID RF: 0 Discharge Orders: Discharge Order (Routine); Ordered 09/09/20 Ordered By: Franklin Beltran Diet: advance to your usual diet Activity on Discharge: As tolerated Discharge Date/Time: 09/09/20 13:15 Visit Report Forms: Patient Portal Discharge page Care Plan Goals: - Health Concerns: - Plan of Treatment: You were admitted to the hospital for evaluation of shortness of breath and lethargy. Found to have atrial fibrillation with rapid heart rate. Your treated with IV and oral medications with good response and evaluated by Cardiology. Digoxin was added to your medications. Continue home medications Take digoxin 1 tab daily as prescribed to follow-up with your cardiology as outpatient To check digoxin level with PCP
== END 2020-09-09 13:15 | disposition home or self-care (01) | DRG 308 ==
LOC: HO.ED 16:59 → HO.IMC 17:32
PROVIDERS: Nurse Practitioner Acute Care; Admitting Provider Student in an Organized Health Care Education/Training Program; Emergency Provider Emergency Medicine; PCP Internal Medicine; Visit Provider Student in an Organized Health Care Education/Training Program
DX: I48.91 Unspecified atrial fibrillation (principal); I50.33 Acute on chronic diastolic (congestive) heart failure; G47.33 Obstructive sleep apnea (adult) (pediatric); M79.7 Fibromyalgia; M19.90 Unspecified osteoarthritis, unspecified site; I44.7 Left bundle-branch block, unspecified; I11.0 Hypertensive heart disease with heart failure; Z85.048 Personal history of other malignant neoplasm of rectum, rectosigmoid junction, and anus; Z88.6 Allergy status to analgesic agent; Z79.01 Long term (current) use of anticoagulants; Z79.891 Long term (current) use of opiate analgesic; Z79.899 Other long term (current) drug therapy
CPT/HCPCS: 36415; 71045; 80048; 80053; 83735; 83880; 84443; 84484; 85025; 85610; 85730; 93005; 96365; 96375; 99284; 99291; J1940

== ENCOUNTER 2020-09-19 02:50 | Emergency (ER) | payer MEDICARE, MEDICAID, SELFPAY ==
[2020-09-19 03:25] VITALS: BP 143/86; PULSE 119; RESP 18; TEMP 36.7; O2SAT 97; BMI 39.4
--- NOTE | 2020-09-19 03:30 | ECG_ITS ---
Test Reason : TACHYCARDIA Blood Pressure : / mmHG Vent. Rate : 100 BPM Atrial Rate : 100 BPM P-R Int : 114 ms QRS Dur : 154 ms QT Int : 382 ms P-R-T Axes : 098 -68 123 degrees QTc Int : 492 ms Sinus tachycardia Left anterior fascicular block Left bundle branch block Abnormal ECG When compared with ECG of 07-SEP-2020 13:38, Heart rate has decreased no aberrant complexes Referred By: Louise Hill Electronically Signed By:JESSE VIVAS MD
[2020-09-19 03:42] VITALS: PULSE 119
--- NOTE | 2020-09-19 03:43 | XR_ITS ---
EXAMINATION: XR CHEST CLINICAL INFORMATION: Cough COMPARISON: 09/07/2020 TECHNIQUE: Frontal view of the chest was obtained. FINDINGS: Lung volumes are symmetric. No focal consolidation is seen. No evidence of pneumothorax, pleural effusion, or pulmonary edema. Cardiac silhouette remains enlarged. No acute osseous findings are seen. XR/XR chest 1V IMPRESSION: No acute pulmonary findings. Cardiac silhouette remains enlarged, similar to prior.
--- NOTE | 2020-09-19 04:08 | ED_ITS ---
HPI - General Adult General Chief complaint: Headache Stated complaint: HIGH PULSE Time Seen by Provider: 09/19/20 03:42 Source: patient Mode of arrival: ambulatory Limitations: no limitations and physical limitation ( Uses a walker) History of Present Illness HPI narrative: This is an 80-year-old female who presents with complaints of feeling a little more tired than usual but denies any associated fevers, chills, nausea, vomiting, abdominal pain, shortness of breath, chest pain /palpitations, diarrhea. Related Data Home Medications Medication Instructions Recorded Confirmed Eliquis 5 mg PO BID 09/07/20 09/07/20 docusate sodium [Colace] 100 mg PO BID 09/07/20 09/07/20 multivitamin 1 tab PO DAILY 09/07/20 09/07/20 nitrofurantoin 100 mg PO Q12H 09/07/20 09/07/20 omeprazole 20 mg PO BID 09/07/20 09/07/20 torsemide 5 mg PO DAILY 09/07/20 09/07/20 tramadol 50 mg PO BID 09/07/20 09/07/20 valsartan 320 mg PO DAILY 09/07/20 09/07/20 verapamil 60 mg PO BID 09/07/20 09/07/20 Previous Rx's Medication Instructions Recorded digoxin 125 mcg PO DAILY #30 tab 09/09/20 nitrofurantoin macrocrystal 100 mg PO Q12H 7 Days #14 cap 09/19/20 Allergies Allergy/AdvReac Type Severity Reaction Status Date / Time lisinopril [From Zestril] Allergy Intermediate RASH, Verified 09/07/20 17:00 FACIAL SWELLING aspirin [Aspirin] Allergy Mild UPSET Verified 09/07/20 17:00 STOMACH aspirin Allergy Unknown GI upset Uncoded 04/07/20 00:00 Review of Systems Review of Systems: Pertinent positives and negatives as stated in HPI 10 point review systems is otherwise negative. REPLACED BY [facility] Past Medical History Source: nursing notes reviewed Medical History Anal cancer Arthritis Atrial fibrillation Atrial fibrillation with controlled ventricular rate Chronic diastolic heart failure Esophagitis Essential hypertension Fibromyalgia Left bundle branch block (LBBB) Obstructive sleep apnea Surgical History H/O foot surgery History of bladder surgery History of total knee arthroplasty Status post ORIF of fracture of ankle Social History Social History Household Members: Family Housing: Apartment Alcohol intake: never Smoking Status: Unknown if ever smoked Use of substances other than those prescribed or required for medical reasons: No Advance Directives: No service: No Current occupational status: retired Physical Exam Vital Signs: Vital Signs: Vital Signs Temp Pulse Pulse Resp BP Pulse Ox 09/19/20 06:27 97.8 F 88 18 144/80 H 09/19/20 03:42 119 H 09/19/20 03:25 98.1 F 119 H 18 143/86 H 97 Body Mass Index 39.4 VITAL SIGNS: Reviewed. GENERAL: Well developed, well nourished, in no acute distress. HEAD: Normocephalic/atraumatic, EYES: PERRLA, EOMI intact without pain, no nystagmus/pallor/icterus noted EARS: Ext canals without abnormality, TMs non-bulging and non-erythematous NOSE: Nares patent bilateral OROPHARYNX: no oral lesions noted, posterior pharynx clear and non-erythematous without noted tonsillar enlargement/erythema/exudates NECK: Supple, no adenopathy LUNGS: Normal breath sounds. No adventitious sounds or accessory muscle use. SpO2<97> CARDIOVASCULAR: Regular rate and rhythm without noted murmurs, no JVD or lower extremity edema. ABDOMEN: Soft, non-tender, non-distended with bowel sounds. No rigidity. No guarding. No palpable masses or hernias noted MUSCULOSKELETAL: No tenderness, deformities, or effusions noted on gross inspection. EXTREMITIES: No cyanosis, clubbing or edema. SKIN: Inspection of the skin reveals no rashes, ulcerations, jaundice, pallor, or petechiae. NEUROLOGIC: Alert and oriented x 4. Strength and sensation to light touch were grossly intact x 4. Course Course Course Narrative: This is an 80-year-old female with history and clinical presentation consistent with possible UTI but will evaluate for evidence of any pulmonary / cardiac etiologies. On review of all investigations there are no acute findings. Specifically, the noted high sensitivity troponin is actually within the range that patient typically runs and no acute changes on EKG. On review of urinalysis patient has findings consistent with UTI and will receive initial dose of antibiotic here in the emergency room and then discharged with a script. All results and findings were discussed with her at bedside. Medical Decision Making Lab Data Result diagrams: 09/19/20 04:48 09/19/20 04:48 Labs: Lab Results 09/19/20 09/19/20 09/19/20 Range/Units 04:48 04:48 04:48 WBC 4.9 (4.8-10.8) X10*3/uL RBC 4.74 (4.20-5.50) X10*6/uL Hgb 14.0 (12.0-16.0) g/dl Hct 44.3 (37-47) % MCV 93.5 (80-98) fL MCH 29.5 (27.0-33.0) pg MCHC 31.6 (31.0-35.0) g/dl RDW 13.8 (11.0-16.0) % Plt Count 214 D (160-400) X10*3/uL MPV 10.9 (9.4-12.3) fL Immature Gran % (Auto) 0.2 (0.0-0.4) % Neut % (Auto) 63.6 (45-73) % Lymph % (Auto) 23.3 (20-40) % Wilcox % (Auto) 10.3 (2-11) % Eos % (Auto) 1.8 (0-4) % Baso % (Auto) 0.8 (0-2) % Lymph # (Auto) 1.2 (1.2-4.9) X10*3/uL Wilcox # (Auto) 0.5 (0.1-1.2) X10*3/uL Eos # (Auto) 0.1 (0.0-0.4) X10*3/uL Baso # (Auto) 0.0 (0.0-0.2) X10*3/uL Abs Immat Gran (auto) 0.01 (0.00-0.03) X10*3/uL Absolute Neuts (auto) 3.1 (2.0-8.3) X10*3/uL Absolute Nucleated RBC 0.000 (0.0-0.012) X10*3/uL Nucleated RBC % (auto) 0.0 (0.0-0.2) /100WBC Sodium 140 (135-145) mmol/L Potassium 4.4 (3.3-5.1) mmol/l Chloride 100 (96-108) mmol/L Carbon Dioxide 31 H (22-29) mmol/L Anion Gap 13 (12-20) BUN 20 H (9-16) mg/dL Creatinine 0.88 (0.5-1.4) mg/dL Estim Creat Clear Calc 57.8 Estimated GFR > 60 Random Glucose 99 (60-115) mg/dL Calcium 8.7 (8.4-10.2) mg/dL Total Bilirubin 0.5 (0.0-1.0) mg/dL AST 26 D (5-31) U/L ALT 27 (0-31) U/L Alkaline Phosphatase 65 (39-117) U/L Troponin I High Sens 17.3 H (<3.5-17.0) ng/L Total Protein 6.4 L (6.5-8.0) g/dL Albumin 3.8 (3.5-5.0) g/dL Urine Color Urine Appearance Urine pH (5.0-8.0) Ur Specific Riva (1.005-1.025) Urine Protein (NEG-TRACE) MG/DL Urine Glucose (UA) (NEG) MG/DL Urine Ketones (NEG) MG/DL Urine Blood (NEG) Urine Nitrite (NEG) Ur Leukocyte Esterase (NEG) 09/19/20 Range/Units 07:04 WBC (4.8-10.8) X10*3/uL RBC (4.20-5.50) X10*6/uL Hgb (12.0-16.0) g/dl Hct (37-47) % MCV (80-98) fL MCH (27.0-33.0) pg MCHC (31.0-35.0) g/dl RDW (11.0-16.0) % Plt Count (160-400) X10*3/uL MPV (9.4-12.3) fL Immature Gran % (Auto) (0.0-0.4) % Neut % (Auto) (45-73) % Lymph % (Auto) (20-40) % Wilcox % (Auto) (2-11) % Eos % (Auto) (0-4) % Baso % (Auto) (0-2) % Lymph # (Auto) (1.2-4.9) X10*3/uL Wilcox # (Auto) (0.1-1.2) X10*3/uL Eos # (Auto) (0.0-0.4) X10*3/uL Baso # (Auto) (0.0-0.2) X10*3/uL Abs Immat Gran (auto) (0.00-0.03) X10*3/uL Absolute Neuts (auto) (2.0-8.3) X10*3/uL Absolute Nucleated RBC (0.0-0.012) X10*3/uL Nucleated RBC % (auto) (0.0-0.2) /100WBC Sodium (135-145) mmol/L Potassium (3.3-5.1) mmol/l Chloride (96-108) mmol/L Carbon Dioxide (22-29) mmol/L Anion Gap (12-20) BUN (9-16) mg/dL Creatinine (0.5-1.4) mg/dL Estim Creat Clear Calc Estimated GFR Random Glucose (60-115) mg/dL Calcium (8.4-10.2) mg/dL Total Bilirubin (0.0-1.0) mg/dL AST (5-31) U/L ALT (0-31) U/L Alkaline Phosphatase (39-117) U/L Troponin I High Sens (<3.5-17.0) ng/L Total Protein (6.5-8.0) g/dL Albumin (3.5-5.0) g/dL Urine Color YELLOW Urine Appearance HAZY Urine pH 6.0 (5.0-8.0) Ur Specific Riva 1.015 (1.005-1.025) Urine Protein NEG (NEG-TRACE) MG/DL Urine Glucose (UA) NEG (NEG) MG/DL Urine Ketones NEG (NEG) MG/DL Urine Blood NEG (NEG) Urine Nitrite NEG (NEG) Ur Leukocyte Esterase 1+ H (NEG) ECG Data Attestation: I personally reviewed and interpreted this ECG as follows: Prior ECG tracings: available for review (09/07/2020 without acute changes when compared) Interpretation: NSR, HR-100, left bundle branch block without evidence of acute ischemia Discharge Plan Discharge Clinical Impression: Acute UTI Patient Disposition: Home, Self-Care Instructions: Urinary Tract Infection in Older Adults (ED) Additional Instructions: The patient and/or family acknowledge understanding of results (as applicable), diagnosis, treatment plan, need for follow up, and symptoms that should prompt a return to the emergency room. Prescriptions: New nitrofurantoin macrocrystal 100 mg capsule 100 mg PO Q12H 7 Days Qty: 14 RF: 0 No Action nitrofurantoin 100 mg Capsule 100 mg PO Q12H RF: 0 multivitamin Tablet 1 tab PO DAILY RF: 0 verapamil 40 mg Tablet 60 mg PO BID RF: 0 tramadol 50 mg Tablet 50 mg PO BID RF: 0 torsemide 5 mg Tablet 5 mg PO DAILY RF: 0 valsartan 320 mg Tablet 320 mg PO DAILY RF: 0 docusate sodium [Colace] 100 mg Capsule 100 mg PO BID RF: 0 omeprazole 20 mg Capsule,Delayed Release(Dr/Ec) 20 mg PO BID RF: 0 Eliquis 5 mg Tablet 5 mg PO BID RF: 0 digoxin 125 mcg (0.125 mg) tablet 125 mcg PO DAILY Qty: 30 RF: 0 Referrals: Mau Ellis MD [Primary Care Provider] - 2 days ( follow-up for further management of UTI)
[2020-09-19] MEDS: Acetaminophen 325 MG TABLET 975 MG PO (04:51)
[2020-09-19 05:09] LABS: MANUAL DIFF FLAG NO
[2020-09-19 05:10] LABS: Basophils Percent Auto 0.8 % (0-2); Eosinophils Absolute Auto 0.1 X10*3/uL (0.0-0.4); Eosinophils Percent Auto 1.8 % (0-4); Hematocrit 44.3 % (37-47); Imm Gran Abs Auto 0.01 X10*3/uL (0.00-0.03); Imm Gran Pct Auto 0.2 % (0.0-0.4); Lymphocytes Absolute Auto 1.2 X10*3/uL (1.2-4.9); Lymphocytes Percent Auto 23.3 % (20-40); Mean Corpuscular HGB Conc 31.6 g/dl (31.0-35.0); Mean Corpuscular Hemoglobin 29.5 pg (27.0-33.0); Mean Corpuscular Volume 93.5 fL (80-98); Mean Platelet Volume 10.9 fL (9.4-12.3); Monocytes Absolute Auto 0.5 X10*3/uL (0.1-1.2); Monocytes Percent Auto 10.3 % (2-11); Neutrophils Absolute Auto 3.1 X10*3/uL (2.0-8.3); Neutrophils Percent Auto 63.6 % (45-73); Platelet Count 214 X10*3/uL (160-400); Red Blood Count 4.74 X10*6/uL (4.20-5.50); Red Cell Distribution Width 13.8 % (11.0-16.0); White Blood Count 4.9 X10*3/uL (4.8-10.8)
[2020-09-19 05:42] LABS: Alanine Aminotransferase 27 U/L (0-31); Albumin Level 3.8 g/dL (3.5-5.0); Alkaline Phosphatase 65 U/L (39-117); Anion Gap 13 (12-20); Aspartate Amino Transferase 26 U/L (5-31); Bilirubin Total 0.5 mg/dL (0.0-1.0); Blood Urea Nitrogen 20 mg/dL (9-16); Calcium 8.7 mg/dL (8.4-10.2); Carbon Dioxide 31 mmol/L (22-29); Chloride 100 mmol/L (96-108); Creatinine Clr Calc Pharmacy 57.8; Estimated Glomerular Filt Rate > 60; Glucose Random 99 mg/dL (60-115); Potassium 4.4 mmol/l (3.3-5.1); Sodium 140 mmol/L (135-145); Total Protein 6.4 g/dL (6.5-8.0)
[2020-09-19 05:51] LABS: Troponin-I High Sensitivity 17.3 ng/L (<3.5-17.0)
[2020-09-19 06:27] VITALS: BP 144/80; PULSE 88; RESP 18; TEMP 36.6
[2020-09-19 07:14] LABS: Glucose Urine UA NEG (NEG); Leukocyte Esterase Urine 1+ (NEG); Nitrite Urine NEG (NEG); Specific Gravity - Urine 1.015 (1.005-1.025); Urine Blood NEG (NEG); Urine Ketones NEG (NEG); Urine Protein NEG (NEG-TRACE)
[2020-09-19 07:17] LABS: Appearance Urine HAZY; Color Urine YELLOW
[2020-09-19 07:23] LABS: RBC Urine 0 /HPF (0)
[2020-09-19 07:24] LABS: Squamous Epithelial Cell Urine 2+ /LPF
[2020-09-19] MEDS: Nitrofurantoin Monohyd/M-Cryst 100 MG CAPSULE PO (07:39)
== END 2020-09-19 07:45 | disposition home or self-care (01) ==
PROVIDERS: Emergency Provider Student in an Organized Health Care Education/Training Program; PCP Internal Medicine
DX: N39.0 Urinary tract infection, site not specified (principal); I10 Essential (primary) hypertension; I44.7 Left bundle-branch block, unspecified; I48.91 Unspecified atrial fibrillation; Z85.048 Personal history of other malignant neoplasm of rectum, rectosigmoid junction, and anus
CPT/HCPCS: 36415; 71045; 80053; 81001; 84484; 85025; 87086; 87147; 93005; 99283; 99284

== ENCOUNTER → 2020-09-30 08:48 | Outpatient (BNVA) | payer MEDICARE, MEDICAID, SELFPAY | PROVIDERS: PCP Internal Medicine; Referring Provider Internal Medicine; Visit Provider Psychiatry & Neurology Neurology | DX: G47.33 Obstructive sleep apnea (adult) (pediatric) (principal) | CPT/HCPCS: 99202 ==

== ENCOUNTER → 2020-10-13 19:50 | Outpatient (REF) | payer MEDICARE, MEDICAID, SELFPAY | LOC: HO.SL 19:50 | PROVIDERS: PCP Internal Medicine; Visit Provider Psychiatry & Neurology Neurology | DX: Z13.89 Encounter for screening for other disorder (principal) ==

== ENCOUNTER 2020-10-16 09:34 | Outpatient (REF) | payer MEDICARE, MEDICAID, SELFPAY ==
[2020-10-16 11:08] LABS: Hematocrit 45.5 % (37-47); Mean Corpuscular HGB Conc 30.8 g/dl (31.0-35.0); Mean Corpuscular Hemoglobin 29.1 pg (27.0-33.0); Mean Corpuscular Volume 94.6 fL (80-98); Mean Platelet Volume 11.5 fL (9.4-12.3); Platelet Count 199 X10*3/uL (160-400); Red Blood Count 4.81 X10*6/uL (4.20-5.50); Red Cell Distribution Width 14.4 % (11.0-16.0); White Blood Count 5.1 X10*3/uL (4.8-10.8)
[2020-10-16 12:23] LABS: Alanine Aminotransferase 29 U/L (0-31); Albumin Level 3.7 g/dL (3.5-5.0); Alkaline Phosphatase 63 U/L (39-117); Anion Gap 13 (12-20); Aspartate Amino Transferase 27 U/L (5-31); Bilirubin Direct 0.2 mg/dL (0.0-0.5); Bilirubin Total 0.3 mg/dL (0.0-1.0); Blood Urea Nitrogen 22 mg/dL (9-16); Calcium 8.5 mg/dL (8.4-10.2); Carbon Dioxide 28 mmol/L (22-29); Chloride 103 mmol/L (96-108); Estimated Glomerular Filt Rate > 60; Glucose Random 124 mg/dL (60-115); Magnesium 1.7 mg/dL (1.6-2.6); Potassium 4.3 mmol/l (3.3-5.1); Sodium 140 mmol/L (135-145); Total Protein 6.2 g/dL (6.5-8.0)
[2020-10-16 12:48] LABS: Thyroid Stimulating Hormone 1.98 uIU/mL (0.32-4.0)
== END 2020-10-16 09:35 | disposition home or self-care (01) ==
LOC: HO.LAB 09:34
PROVIDERS: PCP Internal Medicine; Visit Provider Internal Medicine Cardiovascular Disease
DX: G47.33 Obstructive sleep apnea (adult) (pediatric) (principal); I10 Essential (primary) hypertension; E66.3 Overweight; I48.0 Paroxysmal atrial fibrillation
CPT/HCPCS: 36415; 80048; 80076; 83735; 84443; 85027

== ENCOUNTER 2020-10-21 06:03 | Day surgery (SDC) | payer MEDICARE, MEDICAID, SELFPAY ==
--- NOTE | 2020-10-20 09:14 | P.CONAN_ITS ---
Documented by User: Ronda De Oliveira 10/20/20 09:16 HPI - Anesthesia Eval Consult details Narrative: 80yo F for Cardioversion PMFSH Past Medical History Medical History (Updated 10/20/20 @ 09:15 by Ronda De Oliveira) Anal cancer Arthritis Atrial fibrillation Chronic diastolic heart failure Esophagitis Essential hypertension Fibromyalgia Left bundle branch block (LBBB) Obstructive sleep apnea Surgical History Surgical History H/O foot surgery History of bladder surgery History of total knee arthroplasty Status post ORIF of fracture of ankle Social History Social History Household Members: Family Housing: Apartment Alcohol intake: never Smoking Status: Unknown if ever smoked Use of substances other than those prescribed or required for medical reasons: No Have you been hit, kicked, punched, or otherwise hurt by someone within the past year? If so, by whom?: No Advance Directives: No Advance Directives Information Provided: Yes service: No Current occupational status: retired [email or web address] Allergies Allergy/AdvReac Type Severity Reaction Status Date / Time lisinopril [From Zestril] Allergy Intermediate RASH, Verified 09/07/20 17:00 FACIAL SWELLING aspirin [Aspirin] Allergy Mild UPSET Verified 09/07/20 17:00 STOMACH aspirin Allergy Unknown GI upset Uncoded 04/07/20 00:00 Home Medications Medication Instructions Recorded Confirmed Type Eliquis 5 mg PO BID 09/07/20 09/07/20 History docusate sodium [Colace] 100 mg PO BID 09/07/20 09/07/20 History multivitamin 1 tab PO DAILY 09/07/20 09/07/20 History nitrofurantoin 100 mg PO Q12H 09/07/20 09/07/20 History omeprazole 20 mg PO BID 09/07/20 09/07/20 History torsemide 5 mg PO DAILY 09/07/20 09/07/20 History tramadol 50 mg PO BID 09/07/20 09/07/20 History valsartan 320 mg PO DAILY 09/07/20 09/07/20 History verapamil 60 mg PO BID 09/07/20 09/07/20 History amiodarone 1 tab PO DAILY 10/21/20 10/21/20 History Exam Exam Date and Time: October 20, [id number] Pertinent Lab Results Pertinent Lab Results: Laboratory Tests 10/16/20 10/16/20 10:08 10:08 WBC 5.1 Hgb 14.0 Hct 45.5 Plt Count 199 Sodium 140 Potassium 4.3 Chloride 103 Carbon Dioxide 28 BUN 22 H Creatinine 0.86 Assessment and Plan Assessment Anesthesia Assessment: Chart Reviewed Documented by User: Emanuel Martin 10/21/20 07:47 [facility] Past Medical History Medical History (Updated 10/20/20 @ 09:15 by Ronda De Oliveira) Anal cancer Arthritis Atrial fibrillation Chronic diastolic heart failure Esophagitis Essential hypertension Fibromyalgia Left bundle branch block (LBBB) Obstructive sleep apnea Surgical History Surgical History H/O foot surgery History of bladder surgery History of total knee arthroplasty Status post ORIF of fracture of ankle Social History Social History Household Members: Family Housing: Apartment Alcohol intake: never Smoking Status: Unknown if ever smoked Use of substances other than those prescribed or required for medical reasons: No Have you been hit, kicked, punched, or otherwise hurt by someone within the past year? If so, by whom?: No Advance Directives: No Advance Directives Information Provided: Yes service: No Current occupational status: retired Meds Allergies Allergy/AdvReac Type Severity Reaction Status Date / Time lisinopril [From Zestril] Allergy Intermediate RASH, Verified 09/07/20 17:00 FACIAL SWELLING aspirin [Aspirin] Allergy Mild UPSET Verified 09/07/20 17:00 STOMACH aspirin Allergy Unknown GI upset Uncoded 04/07/20 00:00 Home Medications Medication Instructions Recorded Confirmed Type Eliquis 5 mg PO BID 09/07/20 09/07/20 History docusate sodium [Colace] 100 mg PO BID 09/07/20 09/07/20 History multivitamin 1 tab PO DAILY 09/07/20 09/07/20 History nitrofurantoin 100 mg PO Q12H 09/07/20 09/07/20 History omeprazole 20 mg PO BID 09/07/20 09/07/20 History torsemide 5 mg PO DAILY 09/07/20 09/07/20 History tramadol 50 mg PO BID 09/07/20 09/07/20 History valsartan 320 mg PO DAILY 09/07/20 09/07/20 History verapamil 60 mg PO BID 09/07/20 09/07/20 History amiodarone 1 tab PO DAILY 10/21/20 10/21/20 History Exam Airway Mallampati Class: III TM Dist: >3cm Neck ROM: Poor Denture: Upper and Lower Loose/Missing/Broken Teeth: Yes (Edentulous) Heart: RRR Assessment and Plan Assessment Anesthesia Assessment: Anesthesia Plan Discussed Final Anesthetic Review NPO: Yes ASA Class: IV Final Preanesthetic Review: Consent Obtained/Reviewed Anesthetic Plan Anesthetic Plan: MAC: Disposition: Standard PACU
[2020-10-20 15:24] VITALS: BMI 41.2
[2020-10-21] VITALS (9 sets, daily range): BP systolic 107–126; BP diastolic 58–69; PULSE 62–89; RESP 18; TEMP 36.2–36.9; O2SAT 95–98
--- NOTE | 2020-10-21 | ECG_ITS ---
Test Reason : CARDIOVERSION Blood Pressure : / mmHG Vent. Rate : 062 BPM Atrial Rate : 062 BPM P-R Int : 210 ms QRS Dur : 164 ms QT Int : 506 ms P-R-T Axes : 075 -60 105 degrees QTc Int : 513 ms Sinus rhythm with 1st degree A-V block with Fusion complexes Left axis deviation Left bundle branch block Abnormal ECG When compared with ECG of 21-OCT-2020 07:05, Fusion complexes are now Present Premature atrial complexes are no longer Present NC interval has increased Referred By: Lina Escobar Electronically Signed By:JESSE VIVAS MD
--- NOTE | 2020-10-21 | ECG_ITS ---
Test Reason : CARDIOVERSON Blood Pressure : / mmHG Vent. Rate : 085 BPM Atrial Rate : 085 BPM P-R Int : 120 ms QRS Dur : 166 ms QT Int : 442 ms P-R-T Axes : 095 -64 125 degrees QTc Int : 525 ms Sinus rhythm with Premature atrial complexes Left axis deviation Left bundle branch block Abnormal ECG When compared with ECG of 19-SEP-2020 03:30, previous ekg appears to be afib-will edit Normal sinus rhythm has replaced Atrial fibrillation Referred By: Lina Escobar Electronically Signed By:JESSE VIVAS MD
[2020-10-21] MEDS: Lactated Ringers 1,000 ML 50 ML IVCONT (07:02)
--- NOTE | 2020-10-21 07:22 | PC.NURSE ---
pt arrived to [facility], upon arrival patient was placed on the environmental monitoring technician. Pt was in a.fib with BBB on the monitor. Cardiology called for pre-op EKG. after IV placement and EKG, heart rhythm showed sinus rhythm. picture sent to Dr. Escobar and he determined that pt was in a. flutter and still needed cardioversion
--- NOTE | 2020-10-21 08:15 | HO.CARDIVERS ---
Cardioversion Procedure Note Cardioversion Consent: Verbal and Written consent was obtained from the patient before starting. The patient was made aware of the risk of [not being successful, complex and fatal arrhythmia, thromboembolic episodes like stroke.] Procedure: After consent obtained, defib pads were attached and the patient was sedated by the anesthesia team. Once adequate sedation achieved, [one biphasic synchronized DC shock set at 150 joules was delivered to successfully convert her into sinus rhythm. Pt. tolerated procedure well.]
--- NOTE | 2020-10-21 09:46 | HO.POSTANES ---
Post Anesthesia Evaluation Post Anesthesia Evaluation Vital Signs: Vital Signs Temp Pulse Resp BP Pulse Ox 10/21/20 09:29 97.2 F 67 18 121/64 95 10/21/20 09:17 69 18 116/65 96 10/21/20 09:02 65 18 120/69 96 10/21/20 08:47 64 18 116/62 95 10/21/20 08:32 67 18 107/63 98 10/21/20 08:27 62 18 115/58 L 98 10/21/20 08:22 63 18 112/58 L 96 10/21/20 08:17 98.5 F 66 18 115/68 96 10/21/20 06:54 97.8 F 89 18 126/60 98 Anesthesia: Monitored Mental Status: Awake Pain Control: Satisfactory Nausea/Vomiting: None Hydration: Adequate Anesthesia-Related Issues: No Anes. Related Issues
== END 2020-10-21 09:45 | disposition home or self-care (01) ==
PROVIDERS: PCP Internal Medicine; Visit Provider Internal Medicine Cardiovascular Disease
PROC: 5A2204Z Restoration of Cardiac Rhythm, Single (ICD-10-PCS; principal; 2020-10-21 08:00)
DX: I48.0 Paroxysmal atrial fibrillation (principal); I10 Essential (primary) hypertension; G47.33 Obstructive sleep apnea (adult) (pediatric); Z79.01 Long term (current) use of anticoagulants; Z79.899 Other long term (current) drug therapy
CPT/HCPCS: 92960; 93005

== ENCOUNTER → 2020-12-16 09:27 | Outpatient (BNVA) | payer MEDICARE, MEDICAID, SELFPAY | PROVIDERS: PCP Internal Medicine; Visit Provider Psychiatry & Neurology Neurology | DX: G47.33 Obstructive sleep apnea (adult) (pediatric) (principal) | CPT/HCPCS: Q3014 ==

== ENCOUNTER 2020-12-22 11:00 | Outpatient (REF) | payer MEDICARE, MEDICAID, SELFPAY ==
--- NOTE | 2020-12-22 12:10 | XR_ITS ---
EXAMINATION: XR PELVIS CLINICAL INFORMATION: Pain COMPARISON: Previous pelvis x-ray December 2016 and abdominal and pelvic CT June 2018 TECHNIQUE: AP view of the pelvis. FINDINGS: There is bilateral hip arthritis with joint space narrowing and osteophyte formation. Bones of the pelvis are unremarkable. There are degenerative changes of the lumbar spine. There is a large soft tissue calcification in the pelvis that is similar to previous exam representing a calcified fibroid. There is soft tissue ossification adjacent to the left iliac crest that is unchanged. Soft tissues are otherwise unremarkable. XR/XR pelvis 1-2V IMPRESSION: Bilateral hip arthritis.
== END 2020-12-22 11:01 | disposition home or self-care (01) ==
LOC: HO.HOSX 11:00
PROVIDERS: Visit Provider Orthopaedic Surgery
DX: M16.0 Bilateral primary osteoarthritis of hip (principal); M54.5 Low back pain
CPT/HCPCS: 72170; 99202

== ENCOUNTER 2020-12-23 14:00 | Outpatient (RCR) | payer MEDICARE, MEDICAID, SELFPAY | END 2021-02-10 14:00 | disposition home or self-care (01) | LOC: HO.PT 14:00 | PROVIDERS: PCP Internal Medicine; Visit Provider Internal Medicine | DX: M54.2 Cervicalgia (principal) | CPT/HCPCS: 97110; 97112; 97140; 97162 ==

== ENCOUNTER 2021-01-16 22:03 | Emergency (ER) | payer MEDICARE, MEDICAID, SELFPAY | END 2021-01-17 00:46 | disposition left against medical advice (07) | PROVIDERS: Emergency Provider Emergency Medicine; PCP Internal Medicine | DX: I10 Essential (primary) hypertension (principal) ==